=== PATIENT | male | born 2000 | race Caucasian/White ===

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

== ENCOUNTER 2020-12-26 15:58 | Observation (INO) ==
[2020-12-26 17:22] LABS: Basophils # (auto) 0.02 K/uL (0-0.2); Basophils % (auto) 0.2 %; Eosinophils # (auto) 0.07 K/uL (0-0.5); Eosinophils % (auto) 0.6 %; Hematocrit (blood only) 46.4 % (42-52); Hemoglobin 16.5 g/dL (14.0-18.0); Immature Granulocytes # (auto) 0.02 K/uL (0.00-0.02); Immature Granulocytes % (auto) 0.2 %; Lymphocytes # (auto) 1.71 K/uL (1.2-3.4); Lymphocytes % (auto) 14.3 %; Mean Corpuscular Hemoglobin 33.3 pg (25-34); Mean Corpuscular Hgb Conc 35.6 g/dL (32-36); Mean Corpuscular Volume 93.5 fL (80-100); Mean Platelet Volume 9.3 fL (7.4-10.4); Monocytes % (auto) 9.2 %; Neutrophils # (auto) 9.04 K/uL (1.4-6.5); Neutrophils % (auto) 75.5 %; Platelet Count 265 K/uL (130-400); RDW Coefficient of Variation 12.4 % (11.5-14.5); RDW Standard Deviation 41.9 fL (36.4-46.3); Red Blood Count 4.96 M/uL (4.7-6.1); White Blood Count 11.96 K/uL (4.8-10.8)
[2020-12-26] MEDS ORDERED: SODIUM CHLORIDE 0.9% 1000ML 1,000 ML IV ONE (17:35)
[2020-12-26 17:43] LABS: Appearance Urine Clear (Clear); Bilirubin Urine Negative (Negative); Blood Urine Negative (Negative); Color Urine Yellow; Glucose Urine UA Negative (Negative); Ketones Urine Negative (Negative); Leukocyte Esterase Urine Negative (Negative); Nitrite Urine Negative (Negative); Protein Urine Negative (Negative); Specific Gravity Urine 1.017 (1.000-1.030); Urobilinogen Urine Negative (Negative)
[2020-12-26 17:46] LABS: Albumin Level 3.9 gm/dl (3.4-5.0); BUN Creatinine Ratio 11.7 (10-20); Calcium 9.1 mg/dl (8.5-10.1); Creatinine Clr Calc Pharmacy 98.7 ml/min; Est GFR (African American) 92.3; Est GFR (Non-African American) 79.7; Potassium 3.6 mmol/L (3.5-5.1)
[2020-12-26 17:48] LABS: Bilirubin,Total 1.5 mg/dl (0.2-1); Globulin 4.1 gm/dl (2.5-4.0)
[2020-12-26] MEDS ORDERED: OPTIRAY 320 100ml IV ONE (18:32)
[2020-12-26] MEDS ORDERED: ONDANSETRON INJ 2 MG/ML 2 ML VIAL IV STA (18:39)
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
--- NOTE | 2020-12-26 18:50 | CT Scan Report ---
ABDOMEN AND PELVIS CT WITH IV CONTRAST CT DOSE: 329.51 mGy.cm HISTORY: Acute pain of the abdominal right lower quadrant. RLQ paion TECHNIQUE: Multiaxial CT images of the abdomen and pelvis were performed following the IV administrat ion of 93 cc of Optiray 320, A dose lowering technique was utilized adhering to the principles of AL MESHA. COMPARISON STUDY: None. FINDINGS: cardiac chambers are unremarkable. Clear lung bases. No pneumatosis or pneumoperitone um. Spleen, pancreas, adrenal glands, gallbladder and liver appear unremarkable. Patency of the hepat ic and portal veins. Unremarkable kidneys, ureters and urinary bladder. Unremarkable prostate, aorta and IVC. No adenopathy. No bowel obstruction. A few scattered small bowel air-fluid levels may reflect an ileus. There are a few scattered radiodense foci noted within loops of large and small bowel, possibly reflective of pil l fragments. The appendix is dilated and fluid-filled measuring up to 8 mm transversely demonstrating wall thickening with mucosal hyperemia. Periappendiceal stranding with trace free fluid tracks along the right pericolic gutter. No evidence of perforation or abscess. Unremarkable soft tissues. No acu te fracture. Mild subchondral sclerosis of the right superior femoral head is equivocal for avascular necrosis. IMPRESSION: 1. Acute uncomplicated appendicitis. No perforation or abscess. 2. No bowel obstruction. ACT 112: Negative or not required by law. The above report was generated using voice recognition software. It may contain grammatical, syntax o r spelling errors. Electronically signed by: Trevor Coffman M.D. 12/26/2020 6:48 PM
[2020-12-26] MEDS ORDERED: cefOXitin 2,000 MG/60 ML BAG IV STA (19:20)
--- NOTE | 2020-12-26 19:27 | History & Physical Report ---
Date of Service December 26, 2020 Assessment & Plan (1) Acute appendicitis: Plan is to proceed for laparoscopic appendectomy possible open risk and complication of surgery were explained to the patient including bleeding infection injury to other organs and he would like to proceed accordingly I also discussed the case with the father by phone who is on his way from [place] here Surgical procedure was extensively explained to the patient including anticipated recovery time from surgery and also likelihood when he may be able go back to classes All questions were answered Present on Admission?: Yes History of Present Illness Chief Complaint: Appendicitis Primary Care Provider: [facility] This pleasant 20-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 [employer] majoring in [employer] DD originally from [place] start experiencing some abdominal discomfort yesterday progressively became worse today was seen and evaluated and found clinically and radiographically acute appendicitis His past medical history is pretty much unremarkable no previous surgeries Allergies Allergy/AdvReac Type Severity Reaction Status Date / Time No Known Allergies Allergy Unverified 12/26/20 19:22 Home Medications Medication Instructions Recorded Confirmed Type calcium 0 mg PO DAILY 12/26/20 12/26/20 History cholecalciferol (vitamin D3) 25 mcg PO DAILY 12/26/20 12/26/20 History [Vitamin D3] cyanocobalamin (vitamin B-12) 0 mcg PO DAILY 12/26/20 12/26/20 History [Vitamin B-12] finasteride 1 mg PO DAILY 12/26/20 12/26/20 History ketoconazole 1 applic TOPICAL Q OTHER DAY 12/26/20 12/26/20 History magnesium 0 mg PO DAILY 12/26/20 12/26/20 History multivitamin 1 tab PO DAILY 12/26/20 12/26/20 History omega-3 fatty acids [Fish Oil] 1,000 mg PO DAILY 12/26/20 12/26/20 History zinc 0 mg PO DAILY 12/26/20 12/26/20 History Past Med/Surg History Medical History (Updated 12/26/20 @ 19:11 by David Cunha DO) No chronic diseases present Social History Smoking Status: Current some day smoker Hx Alcohol Use: Yes current occupational status: student Feels Safe at Home: Yes Physical Exam Physical Exam: Patient is alert coherent no distress Constitutional: WD/WN, vitals as above well developed Eyes: PERRL, conjunctivae normal, anicteric sclerae Neck: trachea midline, no thyromegaly Respiratory: normal respiratory effort, lungs clear to auscultation Auscultation: lungs clear to auscultation bilaterally Cardiovascular: RRR, no murmur, no edema Rate/Rhythm: regular rate Gastrointestinal (Abdomen): Positive Rovsing sign exquisite tenderness and rebound just below McBurney's point Musculoskeletal: No pedal edema Results & Data Results & Data ([facility]) Vital Signs (Past 12 Hours) Vital Signs Temp Pulse Pulse Resp BP BP Pulse Ox 12/26/20 18:11 52 L 18 132/81 100 12/26/20 17:10 45 L 20 163/83 H 100 12/26/20 16:11 36.4 C L 55 L 18 138/87 98 PG Care Time/CCT Total # of Minutes Spent Total Time Spent with Patient: Total time spent is greater than 50% in coordination of care (as documented) at patient's floor/unit and/or counseling patient: Coding Level of Care Code 29491 Initial Inpt Care Lvl 3 Diagnoses Acute appendicitis K35.30 Acute appendicitis type: with localized peritonitis Appendicitis abscess presence: without abscess Appendicitis gangrene presence: unspecified whether gangrene present Appendicitis perforation presence: without perforation (1) Acute appendicitis Acute appendicitis type: with localized peritonitis Appendicitis abscess presence: without abscess Appendicitis gangrene presence: unspecified whether gangrene present Appendicitis perforation presence: without perforation Qualified Code(s): K35.30 - Acute appendicitis with localized peritonitis, without perforation or gangrene
[2020-12-26] MEDS: fentaNYL citrate 100 MCG/2 ML VIAL IV PRN ×2 (19:35→22:24)
[2020-12-26] MEDS: LACTATED RINGER'S 1,000 ML IV SCH (19:35)
[2020-12-26 20:28] LABS: Influenza A virus by PCR Negative (Neg); Influenza B virus by PCR Negative (Neg); RSV by PCR Negative (Neg); SARS CoV2 RNA(COVID-19) InHosp NEGATIVE (Negative)
--- NOTE | 2020-12-26 21:53 | Anesthesiology Consultation ---
Date of Service December 26, 2020 Assessment & Plan (1) Encounter for pre-operative examination: Chart Review Chart Review: Acceptable Risk for Surgery History Surgery Operation Date: 12/26/20 21:00 Proposed Procedures p Laparoscopic Appendectomy - Artemio Garcia MD, FACS Height/Weight Height: 5 ft 9 in Weight: 85.1 kg Allergies Allergy/AdvReac Type Severity Reaction Status Date / Time No Known Allergies Allergy Unverified 12/26/20 19:22 Medications Home Medications Medication Instructions Recorded Confirmed Last Taken calcium 0 mg PO DAILY 12/26/20 12/26/20 Unknown cholecalciferol (vitamin D3) 25 mcg PO DAILY 12/26/20 12/26/20 Unknown [Vitamin D3] cyanocobalamin (vitamin B-12) 0 mcg PO DAILY 12/26/20 12/26/20 Unknown [Vitamin B-12] finasteride 1 mg PO DAILY 12/26/20 12/26/20 Unknown ketoconazole 1 applic TOPICAL Q OTHER DAY 12/26/20 12/26/20 Unknown magnesium 0 mg PO DAILY 12/26/20 12/26/20 Unknown multivitamin 1 tab PO DAILY 12/26/20 12/26/20 Unknown omega-3 fatty acids [Fish Oil] 1,000 mg PO DAILY 12/26/20 12/26/20 Unknown zinc 0 mg PO DAILY 12/26/20 12/26/20 Unknown Active Medications Generic Name Dose Route Start Last Admin Trade Name Freq PRN Reason Stop Dose Admin Fentanyl Citrate 50 mcg 12/26/20 18:39 12/26/20 19:35 Fentanyl Citrate 100 Mcg/2 Ml Vial IV 01/09/21 18:38 50 mcg Q15M PRN Administration Pain Lactated Ringer's 1,000 mls @ 125 mls/hr 12/26/20 19:30 12/26/20 19:35 Lr IV 01/25/21 19:29 125 mls/hr .Q8H FABIEN Administration Past Medical History Medical History (Updated 12/26/20 @ 21:53 by Larry Palafox MD) No chronic diseases present Social History Smoking Status: Current some day smoker Hx Alcohol Use: Yes Alcohol type: beer and hard liquor alcohol intake frequency: 3 or more drinks per day Alcohol Intake Frequency Comment: 10 drinks/day Hx Substance Use: Yes substance use type: marijuana Substance Use Type Other:: xanax Physical Exam Vital Signs Last Vital Signs Temp 36.4 C L 12/26/20 16:11 Pulse 50 L 12/26/20 20:52 Resp 18 12/26/20 20:52 BP 150/80 H 12/26/20 20:52 Pulse Ox 98 12/26/20 20:52 Testing Laboratory Results 12/26/20 17:07 12/26/20 17:07 Urine Color Yellow 12/26/20 17:07 Urine Appearance Clear (Clear) 12/26/20 17:07 Urine pH 7.0 (4.5-7.5) 12/26/20 17:07 Ur Specific [place] 1.017 (1.000-1.030) 12/26/20 17:07 Urine Protein Negative (Negative) 12/26/20 17:07 Urine Glucose (UA) Negative (Negative) 12/26/20 17:07 Urine Ketones Negative (Negative) 12/26/20 17:07 Urine Nitrite Negative (Negative) 12/26/20 17:07 Ur Leukocyte Esterase Negative (Negative) 12/26/20 17:07 covid negative today
[2020-12-26] MEDS ORDERED: MIDAZOLAM HCL 1 MG/ML 2ML VIAL ONE (22:56)
[2020-12-26] MEDS ORDERED: fentaNYL citrate 100 MCG/2 ML VIAL ONE ×2 (22:56→23:43)
[2020-12-26] MEDS ORDERED: fentaNYL citrate 100 MCG/2 ML VIAL IV PRN (23:06)
[2020-12-26] MEDS ORDERED: MEPERIDINE HCL 25 MG/ML CARP/VIAL IV PRN (23:06)
[2020-12-26] MEDS ORDERED: KETOROLAC 30 MG/ML VIAL IV PRN (23:06)
[2020-12-26] MEDS ORDERED: ATROPINE SULFATE 0.1 MG/ML 10ML SYR IV PRN (23:06)
[2020-12-26] MEDS ORDERED: ONDANSETRON INJ 2 MG/ML 2 ML VIAL IV PRN (23:06)
[2020-12-26] MEDS ORDERED: BUPIVACAINE 0.5 % 5 MG/1 ML MPF 30ML VIAL INJ ONE (23:39)
--- NOTE | 2020-12-26 23:53 | Post Operative Brief Note ---
PG Immediate Post Op with CF Date of Surgery December 26, 2020 Pre & Post Diagnosis Operation Date: 12/26/20 21:00 Pre-Op Diagnosis: Acute appendicitis Post-Op Diagnosis: Acute appendicitis I identified the patient and participated in the time-out.: Yes Procedure Operation Date: 12/26/20 21:00 Actual Procedures p Laparoscopic Appendectomy - Artemio Garcia MD, FACS Surgeon Artemio Garcai MD, FACS Student [employer] b maximilian HOOKS Estimated Blood Loss 5 Findings Consistent with Post-Op Diagnosis Specimens Specimen Description: Permanent Specimen A: Appendix
[2020-12-27] MEDS ORDERED: ONDANSETRON INJ 2 MG/ML 2 ML VIAL ONE (00:09)
[2020-12-27] MEDS ORDERED: METOCLOPRAMIDE HCL INJ 5 MG/ML 2 ML VIAL ONE (00:09)
[2020-12-27] MEDS ORDERED: PROPOFOL IV EMULSION 10 MG/ML 20 ML VIAL IV ONE (00:09)
[2020-12-27] MEDS ORDERED: ROCURONIUM BROMIDE 10 MG/ML 5 ML VIAL IV ONE (00:09)
--- NOTE | 2020-12-27 00:09 | Operative Report ---
PG Post Operative Report Pre & Post Diagnosis Operation Date: 12/26/20 21:00 Pre-Op Diagnosis: Acute appendicitis Post-Op Diagnosis: Acute appendicitis I identified the patient and participated in the time-out.: Yes Procedure Operation Date: 12/26/20 21:00 Actual Procedures p Laparoscopic Appendectomy - Artemio Garcia MD, FACS The patient was brought into the operating theater supine position general endotracheal anesthesia preoperative antibiotics had been given ER approximately 5 hours or so ago we gave him another dose of Mefoxin IV 1 mg the abdomen was prepped byline solution properly draped a timeout was had patient was identified small incision supraumbilically made sufficient enough to place a Veress needle followed by CO2 followed by 5 mm trocar point of interest back to no injury identified on direct visualization a right upper quadrant 5 mm port was placed with preemptive local analgesic with this we were able then to visualize the cecum elevated And identified the appendix was retrocecal in the gutter at this point we changed the 5 mm umbilical trocar by placing the camera in the right upper quadrant port enlarging the skin incision dilating the fascia with Brit and placed a 12 mm port to accommodate the Endo MATTIE the 5 mm port that was removed was placed in left lower quadrant on direct visualization with pr eemptive local analgesic camera was placed left lower quadrant were able then to elevate the cecum the appendix had some retroperitoneal fine attachments that we took out we created a window between the appendix and the cecum then a blue load Endo MATTIE was placed in the appendix securing the artery that we could see with 10 mm the appendix was removed from the mesoappendix the area was then checked hemostasis irrigated intact and appears satisfactory we then placed the appendix in an Endopouch and taken out intact through the umbilical port site the camera was then placed in the right upper quadrant visualized the left lower quadrant trocar which was free of any bleeding is removed and lastly removed the right upper quadrant fascial stitch of the periumbilical area was done with 0 Vicryl [id number] times 2 subcutaneous tissue was closed with 4-0 Monocryl Steri-Strips applied procedure was tolerated well by the patient estimated blood loss 5 cc addendum Vish Moses physician bilingual executive assistant was present throughout the case and helped the retraction exposure and wound closure Surgeon Artemio Garcia MD, FACS Patternmaker Apprentice [employer]ly HOOKS Estimated Blood Loss 5 Findings Consistent with Post-Op Diagnosis Specimens appendix Description of Procedure merda I attest to the content of the Intraoperative Record and any orders documented therein. Any exceptions are noted below.
[2020-12-27] MEDS ORDERED: LABETALOL HCL IV 5 MG/ML 20ML IV PRN (00:18)
--- NOTE | 2020-12-27 00:57 | Anesthesiology Progress Note ---
Date of Service December 27, 2020 Anesthesia Post Procedure Vital Signs Vital Signs: Temp Pulse Pulse Resp BP BP Pulse Ox 12/27/20 00:15 103 H 12 179/101 H 100 12/26/20 22:18 51 L 18 154/90 H 97 12/26/20 20:52 50 L 18 150/80 H 98 12/26/20 19:42 56 L 18 133/88 99 12/26/20 18:11 52 L 18 132/81 100 12/26/20 17:10 45 L 20 163/83 H 100 12/26/20 16:11 36.4 C L 55 L 18 138/87 98 Transfer of Care Handoff Completed per policy Notes Mental Status: alert / awake / arousable Patient Amnestic to Procedure: Yes Nausea / Vomiting: adequately controlled Pain: adequately controlled Airway Patency, RR, SpO2: stable & adequate BP & HR: stable & adequate Hydration State: stable & adequate Anesthetic Complications: no major complications apparent
[2020-12-27] MEDS ORDERED: oxyCODONE HCL IR 5 MG TAB (IMMEDIATE RELEASE) PO PRN (01:36)
[2020-12-27] MEDS ORDERED: KETOROLAC TROMETHAMINE 15 MG/ML VIAL IV PRN (01:36)
[2020-12-27] MEDS ORDERED: ONDANSETRON INJ 2 MG/ML 2 ML VIAL IV PRN (01:36)
[2020-12-27] MEDS ORDERED: MoRPHine SULFATE 2 MG/ML CARP IV PRN (01:36)
[2020-12-27] MEDS ORDERED: LACTATED RINGER'S 1,000 ML IV SCH (01:36)
[2020-12-27] MEDS: ACETAMINOPHEN 1,000 MG/100 ML VIAL IV SCH ×2 (01:51→09:02)
[2020-12-27] MEDS: LACTATED RINGER'S 1,000 ML IV SCH ×2 (02:01→02:42)
--- NOTE | 2020-12-27 07:43 | Surgery Progress Note ---
Date of Service December 27, 2020 Assessment & Plan (1) Acute appendicitis: POD#1 laparoscopic appendectomy Patient clinically doing well, VSS Surgical incisions c/d/i. Okay to remove dressings tomorrow and shower Advance diet as tolerates Okay for plan for discharge to home today. Instructed patient to get out of the car and walk hourly if he goes home to [place] No heavy lifting >10 pounds next 10 days, no driving for 3 days, may shower starting tomorrow Follow up with in clinic within 1 week Pt seen and examined with Dr. Garcia Admission and Anticipated Discharge Date Admission Date: December 27, 2020 Subjective Patient is feeling fine this AM. Offers no complaints. Unsure if he is going to stay in town or go home to [place] with his Father. Physical Exam Physical Exam: awake/alert Constitutional: well developed and well nourished; no acute distress Respiratory: normal respiratory effort Gastrointestinal (Abdomen): Inspection/Auscultation: + abdominal surgical incision (surgical dressings c/d/i); abdomen not distended Percussion/Palpation: abdomen soft Results & Data ([facility]) Vital Signs (Past 12 Hours) Vital Signs Temp Pulse Resp BP Pulse Ox 12/27/20 07:36 36.6 C 51 L 18 138/77 96 12/27/20 03:17 58 L 16 162/80 H 97 12/27/20 02:28 36.7 C 47 L 15 154/83 H 97 12/27/20 00:55 36.8 C 44 L 14 177/106 H 98 12/27/20 00:50 36.9 C 45 L 16 181/91 H 98 12/27/20 00:40 37 C 61 14 176/108 H 99 12/27/20 00:30 48 L 14 178/100 H 100 12/27/20 00:25 37.2 C 63 14 184/103 H 99 12/27/20 00:15 103 H 12 179/101 H 100 12/26/20 22:18 51 L 18 154/90 H 97 12/26/20 20:52 50 L 18 150/80 H 98 12/26/20 19:42 56 L 18 133/88 99 PG Care Time/CCT Total # of Minutes Spent Total Time Spent with Patient: Total time spent is greater than 50% in coordination of care (as documented) at patient's floor/unit and/or counseling patient: Coding Level of Care Code None Diagnoses Acute appendicitis K35.30 Acute appendicitis type: with localized peritonitis Appendicitis abscess presence: without abscess Appendicitis gangrene presence: unspecified whether gangrene present Appendicitis perforation presence: without perforation (1) Acute appendicitis Acute appendicitis type: with localized peritonitis Appendicitis abscess presence: without abscess Appendicitis gangrene presence: unspecified whether gangrene present Appendicitis perforation presence: without perforation Qualified Code(s): K35.30 - Acute appendicitis with localized peritonitis, without perforation or gangrene
[2020-12-27] MEDS ORDERED: MULTIVITAMIN TAB PO SCH (09:00)
[2020-12-27] MEDS ORDERED: OMEGA-3 (PURIFIED FISH OIL) 1 GM CAP PO SCH (09:00)
[2020-12-27] MEDS ORDERED: CHOLECALCIFEROL 1,000 UNITS 25 MCG TAB PO SCH (09:00)
--- NOTE | 2021-01-04 02:03 | Discharge Summary (DS) ---
ADMISSION DIAGNOSIS: Acute appendicitis. DISCHARGE DIAGNOSIS: Acute appendicitis. HOSPITAL COURSE: This is a 20-year-old male who was admitted to [facility] via the Emergency Department secondary to acute abdominal pain. Imaging studies revealed the patient had acute appendicitis and he was therefore taken to the operating room on the date of admission for a laparoscopic appendectomy. The patient's surgery went without incident. Postoperatively, the patient's diet was advanced as tolerated and his pain was adequately controlled and he was deemed stable for discharge home on postoperative day #1. The patient was provided with appropriate wound care, diet, followup instructions, and discharged home on postoperative day #1.
== END 2020-12-27 10:17 | disposition home or self-care (01) ==
LOC: ED 15:58 → OR 22:45 → 3E 22:45